=== PATIENT | male | born 1955 | race Caucasian/White ===

== ENCOUNTER → 2020-08-11 15:27 | Outpatient (BNVA) | payer MEDICARE, MEDICAID, SELFPAY | PROVIDERS: Family Provider Internal Medicine; PCP Internal Medicine; Visit Provider Internal Medicine | DX: E78.5 Hyperlipidemia, unspecified (principal); R09.82 Postnasal drip; I10 Essential (primary) hypertension | CPT/HCPCS: 80053; 80061; 83036; 84443; 85025 ==

== ENCOUNTER → 2022-12-13 08:42 | Outpatient (BNVA) | payer MEDICARE, MEDICAID, SELFPAY | PROVIDERS: Family Provider Internal Medicine; PCP Internal Medicine; Visit Provider Podiatrist Foot & Ankle Surgery | DX: I73.9 Peripheral vascular disease, unspecified (principal); B35.1 Tinea unguium; E11.9 Type 2 diabetes mellitus without complications; Z79.84 Long term (current) use of oral hypoglycemic drugs | CPT/HCPCS: 11721; 99204 ==

== ENCOUNTER → 2023-02-18 08:43 | Outpatient (BNVA) | payer MEDICARE, MEDICAID, SELFPAY | PROVIDERS: Family Provider Internal Medicine; PCP Internal Medicine; Visit Provider Podiatrist Foot & Ankle Surgery | DX: E11.8 Type 2 diabetes mellitus with unspecified complications (principal); B35.1 Tinea unguium; I73.9 Peripheral vascular disease, unspecified; Z79.84 Long term (current) use of oral hypoglycemic drugs | CPT/HCPCS: 11721 ==

== ENCOUNTER 2023-12-14 10:00 | Outpatient (CLI) | payer MEDICARE, MEDICAID, SELFPAY ==
--- NOTE | 2023-12-14 10:22 | CT_ITS ---
WS: [id number] LDCT LUNG CANCER SCREENING TECHNIQUE: Noncontrast CT of the chest with coronal and sagittal reformatted images. CLINICAL INFORMATION: NICOTINE DEPENDENCE, CIGARETTES COMPARISON: None. DLP: 46.30 mGy.cm DIvol: Mean CTDIvol: 0.90 (mGy) All CT scans at [facility] use at least one of these dose optimization techniques: automat ed exposure control; mA and/or kV adjustment per patient size (includes targeted exams where dose is matched to clinical indication); or iterative reconstruction. FINDINGS: Noncalcified nodule RIGHT middle lobe measuring 4 mm. Slight bibasal atelectasis. Normal caliber thoracic aorta with aortic calcification. Coronary calcification. No mediastinal or hi lar lymphadenopathy. No axillary lymphadenopathy. Small nodule RIGHT adrenal gland likely adenoma. LE FT adrenal gland is normal. Splenic artery calcification. Small esophageal hiatal hernia. Mild thoracic kyphosis. Mild thoracic curve. CT/CT lung screening [id number] IMPRESSION: LUNG-RADS: 2-Benign Appearance or Behavior FOLLOW UP: 12 Month: Continue annual screening with LDCT
== END 2023-12-14 10:13 | disposition home or self-care (01) ==
LOC: RAD 10:15
PROVIDERS: PCP Internal Medicine; Visit Provider Internal Medicine
DX: Z12.2 Encounter for screening for malignant neoplasm of respiratory organs (principal); F17.210 Nicotine dependence, cigarettes, uncomplicated; R91.8 Other nonspecific abnormal finding of lung field; I70.0 Atherosclerosis of aorta; E27.9 Disorder of adrenal gland, unspecified; D73.89 Other diseases of spleen; K44.9 Diaphragmatic hernia without obstruction or gangrene
CPT/HCPCS: 71271

== ENCOUNTER 2025-05-10 10:19 | Outpatient (CLI) | payer MEDICARE, SELFPAY ==
--- NOTE | 2025-05-10 10:27 | US_ITS ---
WS: [id number] RIGHT UPPER QUADRANT ULTRASOUND HISTORY: POSTPRANDIAL BLOATING COMPARISON: None available. Liver: 15.4 cm in length. Normal size liver and echogenicity. No bile duct dilatation or mass. Portal Vein: Normal hepatopetal flow with monophasic waveform. Gallbladder: Normal size gallbladder. No stones are identified. No pericholecystic fluid. CBD: 0.3 cm Pancreas: Portions of the head and tail are obscured. The body is negative. Right kidney: 9.5 cm in length. Normal size and echogenicity. No hydronephrosis or mass. Aorta and IVC: Unremarkable abdominal aorta and IVC. No ascites. US/US abdomen limited [id number] IMPRESSION: 1. Normal size gallbladder with no stones. 2. Normal liver. 3. Nonvisualization of the pancreas.
== END 2025-05-10 10:20 | disposition home or self-care (01) ==
LOC: RAD 10:22
PROVIDERS: PCP Internal Medicine; Visit Provider Internal Medicine
DX: R14.0 Abdominal distension (gaseous) (principal)
CPT/HCPCS: 76705